=== PATIENT | male | born 1960 | race American Indian/Alaskan Native ===

== ENCOUNTER 2021-09-26 00:06 | Emergency (ER) | payer MEDICAID ==
[2021-09-26] MEDS ORDERED: CEFEPIME/NS 2 GM/100 ML 2 GM/100 ML BAG IV ONE (00:16)
[2021-09-26] MEDS ORDERED: VANCOMYCIN 1,000 MG in SODIUM CHLORIDE 0.9% 500 ML 500 ML IV ONE (00:16)
[2021-09-26] MEDS ORDERED: SODIUM CHLORIDE 0.9% 1000 ML 1,000 ML IV ONE (00:16)
--- NOTE | 2021-09-26 00:21 | Emergency Department Report ---
ED Shortness of Breath HPI - General Chief Complaint: Dyspnea/Respdistress Stated Complaint: SHORTNESS OF BREATH, DNR Time Seen by Provider: 09/26/21 00:11 Source: EMS Mode of arrival: Stretcher Limitations: Physical Limitation - History of Present Illness Initial Comments: Chief complaint: Shortness of breath HPI: This Is a 61-year-old male with hx of dementia, anemia, hypertension, schizophrenia, anxiety disorder, malnutrition, hyperlipidemia, diabetes mellitus who presents with failure to thrive hypoxia bradycardia. According to who gave history via phone, patient has had decline over several weeks. Patient is currently nonverbal. Oxygen saturation 82% on 4 L nasal cannula. Pulse 36 breaths/min. Patient currently resides at [facility]. I spoke with Venecia Blanca per phone. Cell phone #[phone] Patient is DNR status. POLST states to allow natural with comfort measures limited use of antibiotics. Trial period of IV fluids, no artificial nutrition by tube. POLST was signed January 03, [address] Pat. Complaint: shortness of breath -: Gradual, week(s) (Several weeks) Severity: severe Consistency: constant Improves With: nothing Worsens With: nothing Known History Of: other (Dementia schizophrenia) Treatments Prior to Arrival: oxygen, other (EMS transport) - Related Data Home Medications Medication Instructions Recorded Confirmed Last Taken LORazepam [Ativan] 2 mg PO BID 05/12/16 05/12/16 Unknown Pravastatin Sodium [Pravastatin] 20 mg PO QHS 05/12/16 05/12/16 Unknown lisinopriL [Zestril] 20 mg PO QDAY 05/12/16 05/12/16 Unknown metFORMIN [Glucophage] 500 mg PO DAILY 05/12/16 05/12/16 Unknown raNITIdine HCl [Acid Control] 150 mg PO DAILY 05/12/16 05/12/16 Unknown Allergies Allergy/AdvReac Type Severity Reaction Status Date / Time No Known Allergies Allergy Unverified 05/12/16 18:41 ED Review of Systems ROS: Stated complaint: SHORTNESS OF BREATH, DNR Other details as noted in HPI Comment: Unobtainable due to pts medical conditions (Nonverbal, critical clinical status, history of dementia) ED Past Medical Hx - Past Medical History Previous Medical History?: Yes Hx Hypertension: Yes Hx Diabetes: Yes Hx Psychiatric Treatment: Yes (Dementia, schizophrenia) Additional medical history: hyperlipidemia - Surgical History Past Surgical History?: Yes Additional Surgical History: Unable to obtain - Social History Smoking Status: Never Smoker Substance Use Type: None - Medications Home Medications: Home Medications Medication Instructions Recorded Confirmed Last Taken Type LORazepam [Ativan] 2 mg PO BID 05/12/16 05/12/16 Unknown History Pravastatin Sodium [Pravastatin] 20 mg PO QHS 05/12/16 05/12/16 Unknown History lisinopriL [Zestril] 20 mg PO QDAY 05/12/16 05/12/16 Unknown History metFORMIN [Glucophage] 500 mg PO DAILY 05/12/16 05/12/16 Unknown History raNITIdine HCl [Acid Control] 150 mg PO DAILY 05/12/16 05/12/16 Unknown History ED Physical Exam - General Limitations: Physical Limitation General appearance: lethargic, cachectic, other (Poor eye contact, cachectic extremities, nonverbal, limited response to painful stimuli) - Head Head exam: Present: atraumatic, normocephalic - Eye Eye exam: Present: normal appearance. Absent: scleral icterus, conjunctival injection - ENT ENT exam: Present: mucous membranes dry - Neck Neck exam: Present: normal inspection, full ROM. Absent: tenderness, meningismus - Respiratory Respiratory exam: Present: respiratory distress, wheezes, decreased breath sounds. Absent: rales, rhonchi - Cardiovascular Cardiovascular Exam: Present: regular rate, normal rhythm, normal heart sounds. Absent: bradycardia, tachycardia, systolic murmur, diastolic murmur - GI/Abdominal GI/Abdominal exam: Present: soft. Absent: distended, tenderness, guarding, rebound - Extremities Exam Extremities exam: Present: normal inspection - Neurological Exam Neurological exam: Present: altered - Psychiatric Psychiatric exam: Present: depressed, flat affect - Skin Skin exam: Present: warm, intact, normal color ED Course Vital Signs 09/26/21 09/26/21 00:15 00:20 Pulse Rate 98 H 88 Respiratory 10 L 10 L Rate O2 Sat by Pulse 96 96 Oximetry - Reevaluation(s) Reevaluation #1: 09/26/21 02:08 Labs revealed multiorgan dysfunction syndrome severe hyponatremia, acute kidney injury, lactic acidosis presumably due to sepsis ED Medical Decision Making - Lab Data Result diagrams: 09/26/21 00:15 09/26/21 00:15 - Medical Decision Making This is a 61-year-old male who presents with acute respiratory failure hypoxia, failure to thrive, bradycardia. Upon arrival I was concerned for imminent decline. I immediately called for plan of care. Unfortunately patient shortly after arrival. . Time of 0045. Upon 's arrival, I informed her that her . I brought her to the bedside to be with her loved one. Critical Care Time: Yes Critical care time in (mins) excluding proc time.: 40 Critical care attestation.: If time is entered above; I have spent that time in minutes in the direct care of this critically ill patient, excluding procedure time. 40 minutes of critical care time excluding procedures were used in the care of the patient. I came immediately to the bedside upon patient's arrival. I obtained history from EMS at the bedside. I discussed treatment plan with the nursing team members. I reviewed documentation from snf facility. I immediately contacted to create a treatment plan. She plans to come to the hospital to see her . Patient required multiple interventions and reassessments. ED Disposition Clinical Impression: Acute respiratory failure with hypoxia, Failure to thrive, DNR (do not resusci coombs), Dementia, Schizophrenia Disposition: 20 Is pt being admited?: No Does the pt Need Aspirin: No Time of Disposition: 00:45
[2021-09-26 00:46] LABS: Basophils % (Auto) 0.4 % (0.0-1.8); Lymphocytes % (Auto) 25.7 % (13.4-35.0); Mean Corpuscular HGB Conc 31 % (32-34); Mean Corpuscular Volume 104 fl (84-94); Monocytes # (Auto) 0.1 K/mm3 (0.0-0.8); Monocytes % (Auto) 1.7 % (0.0-7.3); Platelet Count 375 K/mm3 (140-440); Red Blood Count 4.68 M/mm3 (3.65-5.03); Red Cell Distribution Width 14.1 % (13.2-15.2)
[2021-09-26 00:50] LABS: Hematocrit 48.5 % (35.5-45.6); Hemoglobin 14.9 gm/dl (11.8-15.2)
[2021-09-26] MEDS ORDERED: VANCOMYCIN/NS 1 GM/250 ML 1 GM/250 ML BAG IV ONE (01:00)
[2021-09-26 01:48] LABS: Albumin 3.8 g/dL (3.9-5); Calcium 9.8 mg/dL (8.4-10.2)
== END 2021-09-26 04:37 ==
LOC: ED 00:06
DX: J96.01 Acute respiratory failure with hypoxia (principal); R62.7 Adult failure to thrive; Z66 Do not resuscitate; F03.90 Unspecified dementia, unspecified severity, without behavioral disturbance, psychotic disturbance, mood disturbance, and anxiety; F20.9 Schizophrenia, unspecified; I10 Essential (primary) hypertension; E11.9 Type 2 diabetes mellitus without complications; E78.5 Hyperlipidemia, unspecified
CPT/HCPCS: 36415; 80053; 82140; 85025; 87040; 99291; J0692; J3370; J7030; Q0162